=== PATIENT | male | born 1950 | race Two or more races ===

== ENCOUNTER → 2021-12-26 | Outpatient (CLI) | payer OTHER ==
[~2021-12-26] MED LIST: IOPAMIDOL 370 MG/ML 100 ML INFUS..BTL INJ ONE; NITROGLYCERIN 0.4 MG SUBL ONE; SODIUM CHLORIDE 0.9% 100 ML ONE
[2021-12-26 11:15] LABS: CREATININE, SERUM 1.07 mg/dL (0.72-1.25)
== END ==
LOC: CT 09:58
PROVIDERS: ATTEND Internal Medicine Clinical Cardiac Electrophysiology
DX: R07.9 Chest pain, unspecified (principal); I25.119 Atherosclerotic heart disease of native coronary artery with unspecified angina pectoris
CPT/HCPCS: 36415; 75574; 82565; 84520; J7050; Q9967